=== PATIENT | female | born 1935 | race Caucasian/White ===

== ENCOUNTER → 2018-11-08 | Outpatient (REF) | payer MEDICARE ==
[~2018-11-08] MED LIST: ALENDRONATE70 MG PO; ATACAND8 MG OR; CRESTOR5 MG OR; DETROL LA4 MG PO; DIOVAN160 MG PO; EQ ASPIRIN325 MG OR; NAPROSYN375 MG PO
== END | disposition home or self-care (01) ==
LOC: MAMMO 10-21 14:00
PROVIDERS: ATTEND Internal Medicine
DX: Z12.31 Encounter for screening mammogram for malignant neoplasm of breast (principal)

== ENCOUNTER 2019-09-05 15:43 | Emergency (ER) | payer MEDICARE ==
[~2019-09-05] VITALS: Ht 172.7 cm; Wt 72.7 kg
[2019-09-05] MEDS ORDERED: HYZAAR1 TAB PO (18:04)
[2019-09-05] MEDS ORDERED: OXYBUTYNIN CHLO10 MG PO (18:05)
[2019-09-05] MEDS ORDERED: ATORVASTATIN CA20 MG PO (18:06)
[2019-09-05] MEDS ORDERED: LOPRESSOR 550 MG/TAB PO (18:06)
[2019-09-05 18:30] VITALS: BP 151/74
== END 2019-09-05 18:30 | disposition home or self-care (01) ==
LOC: ED 15:43
PROC: 2W3JX1Z Immobilization of Right Finger using Splint (ICD-10-PCS; principal; 2019-09-05)
DX: S62.634A Displaced fracture of distal phalanx of right ring finger, initial encounter for closed fracture (principal); I10 Essential (primary) hypertension; W22.09XA Striking against other stationary object, initial encounter; Y92.009 Unspecified place in unspecified non-institutional (private) residence as the place of occurrence of the external cause

== ENCOUNTER 2022-05-07 08:29 | Day surgery (SDC) | payer MEDICARE ==
[~2022-05-07] VITALS: Ht 172.7 cm; Wt 62.6 kg
[~2022-05-07 08:29] MED LIST changes: +ASPIRIN81 MG PO; +ATORVASTATIN CA20 MG PO; +HYZAAR1 TAB PO; +LOPRESSOR 550 MG/TAB PO; +OXYBUTYNIN CHLO10 MG PO
[2022-05-07] MEDS ORDERED: COQ-10100 MG PO (09:55)
[2022-05-07] MEDS ORDERED: GABAPENTIN100 MG PO (09:55)
[2022-05-07] MEDS ORDERED: CALTRATE 603 PO (09:56)
[2022-05-07] MEDS ORDERED: PROBIOTI2 (09:56)
[2022-05-07 11:09] VITALS: BP 161/75
== END 2022-05-07 11:28 | disposition home or self-care (01) ==
LOC: ORM 08:29
PROVIDERS: ATTEND Physical Medicine & Rehabilitation Pain Medicine
DX: M54.16 Radiculopathy, lumbar region (principal); M48.062 Spinal stenosis, lumbar region with neurogenic claudication; G89.4 Chronic pain syndrome
CPT/HCPCS: J1100; J3490; Q9967

== ENCOUNTER 2023-05-13 07:03 | Day surgery (SDC) | payer MEDICARE ==
[~2023-05-13] VITALS: Ht 167.6 cm; Wt 65.8 kg
[~2023-05-13 07:03] MED LIST changes: +CALTRATE 603 PO; +COQ-10100 MG PO; +GABAPENTIN100 MG PO; +PROBIOTI2
[2023-05-13] MEDS ORDERED: ASPIRIN81 MG PO (07:56)
[2023-05-14 07:06] VITALS: BP 131/65
== END 2023-05-13 09:05 | disposition home or self-care (01) ==
LOC: ORM 07:03
PROVIDERS: ATTEND Physical Medicine & Rehabilitation Pain Medicine
DX: G89.4 Chronic pain syndrome (principal); M54.16 Radiculopathy, lumbar region; M48.062 Spinal stenosis, lumbar region with neurogenic claudication; M62.838 Other muscle spasm